=== PATIENT | female | born 1995 | race Two or more races ===

== ENCOUNTER 2025-09-29 10:03 | Emergency (ER) | payer MEDICAID, OTHER ==
[~2025-09-29] VITALS: Ht 180.3 cm; Wt 138.2 kg
--- NOTE | 2025-09-29 10:21 | ED.PDOC ---
GI ASSESSMENT HPI Comments 29 year old female presents to the ED with a chief complaint of abdominal pain onset 1 day. Patient has been experiencing RLQ pain for the past day as well as nausea/vomiting, poor fluid intake due to symptoms. She is currently 9 weeks , . She is also experiencing dysuria with burning sensation. Denies fever, chills, headache, dizziness, hematemesis, hematuria, vaginal discharge. No other symptoms or modifying factors present at this time. Chief Complaint: Nausea/Vomiting Time Seen by MD: 10:15 Reviewed Notes: Medications, Allergies Allergies: Coded Allergies: NO KNOWN ALLERGIES (Unverified , 09/29/25) Information Source: Patient Mode of Arrival: Ambulatory Timing: Days Duration: Since onset Prehospital treatment: None Quality: Sharp Severity: Moderate Recent: None Recent Hx of: Current Pain Location: RLQ Modifying Factors: Nothing Associated sign and symptoms: Nausea, Vomiting, Abdominal Pain Past Medical History PAST MEDICAL HISTORY: Denies Surgical History: Denies all surgeries YARN TESTER History: No Pertinent YARN TESTER History Family History Family History: Reviewed,noncontributory to illness, No family hx of Cancer, No family hx of DM, No family hx of Heart rossy, No family hx of HTN, No family hx ofKidney rossy, No family hx of Liver rossy, No family hx of Lung rossy, No family hx of Stroke Social History Smoker: Non-Smoker Alcohol: Denies ETOH Use Drugs: Denies Drug Use Lives In: Home Constitutional: denies: chills, diaphoresis, fatigue, fever, malaise, sweats, weakness, others EENTM: denies: blurred vision, double vision, ear bleeding, ear discharge, ear drainage, ear pain, ear ringing, eye pain, eye redness, hearing loss, mouth pain, mouth swelling, nasal discharge, nose bleeding, nose congestion, nose pain, photophobia, tearing, throat pain, throat swelling, voice changes, others Respiratory: denies: cough, hemoptysis, orthopnea, SOB at rest, shortness of breath, SOB with excertion, stridor, wheezing, others Cardiovascular: denies: chest pain, dizzy spells, diaphoresis, Dyspnea on exertion, edema, irregular heart beat, left arm pain, lightheadedness, palpitations, PND, syncope, others Gastrointestinal: reports: abdominal pain, nausea, poor fluid intake, vomiting; denies: abdomen distended, blood streaked bowels, constipated, diarrhea, dysphagia, difficulty swallowing, hematemesis, melena, poor appetite, rectal bleeding, rectal pain, others Genitourinary: reports: burning, dysuria, ; denies: abnormal vagina bleeding, dyspareunia, flank pain, frequency, hematuria, incontinence, pain, vagina discharge, urgency, others Neurological: denies: dizziness, fainting, headache, left sided numbness, left sided weakness, numbness, paresthesia, pre-existing deficit, right sided numbness, right sided weakness, seizure, speech problems, tingling, tremors, weakness, others Musculoskeletal: denies: back pain, gout, joint pain, joint swelling, muscle p ain, muscle stiffness, neck pain, others Integumetry: denies: bruises, change in color, change in hair/nails, dryness, laceration, lesions, lumps, rash, wounds, others Allergic/Immunocompromised: denies: Difficulty Healing, Frequent Infections, Hives, Itching, others Hematologic/Lymphatic: denies: anemia, blood clots, easy bleeding, easy bruising, swollen glands, others Endocrine: denies: excessive hunger, excessive sweating, excessive thirst, excessive urination, flushing, intolerance to cold, intolerance to heat, unexplained weight gain, unexplained weight loss, others Psychiatric: denies: anxiety, bipolar disorder, depression, hopeless, panic disorder, schizophrenia, sleepless, suicidal, others All Other Systems: Reviewed and Negative Physical Exam General Appearance: Moderate Distress, Normal HEENT: Normal ENT Inspection, Pharynx Normal, TMs Normal Neck: Full Range of Motion, Non-Tender, Normal, Normal Inspection Respiratory: Chest Non-Tender, Lungs Clear, No Accessory Muscle Use, No Respiratory Distress, Normal Breath Sounds Cardiovascular: No Edema, No JVD, No Murmur, No Gallop, Normal Peripheral Pulses, Regular Rate/Rhythm Breast Exam: Deferred Gastrointestinal: No Organomegaly, Non Tender, No Pulsatile Mass, Normal Bowel Sounds, Soft Genitalia: Deferred Pelvic: Deferred Rectal: Deferred Extremities: No calf tenderness, Normal capillary refill, Normal inspection, Normal range of motion, Non-tender, No pedal edema Musculoskeletal : Apperance: Normal Neurologic: Alert, 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 Was a procedure done?: No GI differential Dx Differential Diagnosis: Constipation, Diverticular disease, Esophagitis, Gastritis/PUD, Gastroenteritis X-Ray, Labs, Meds, VS Vital Signs Date Time Temp Pulse Resp B/P (MAP) Pulse Ox O2 Delivery O2 Flow Rate FiO2 09/29/25 11:18 101 17 98 Room Air 09/29/25 11:18 98.7 101 17 124/89 (101) 98 98.7 09/29/25 10:07 98.3 115 15 127/99 96 98.3 Lab Test 09/29/25 11:11 09/29/25 10:34 Range/Units Urine Color Light-orange Yellow Urine Clarity Turbid H Clear Urine pH 6.0 5.0-9.0 Urine Specific [place] 1.032 1.001-1.035 Urine Protein 1+ H Negative Urine Ketones 1+ H Negative Urine Blood Trace H Negative /uL Urine Nitrite Negative Negative Urine Bilirubin Negative Negative Urine Urobilinogen Normal Negative mg/dL Urine Leukocyte Esterase 3+ Negative /uL Urine RBC 35 0 - 4 /hpf Urine Microscopic WBC 46 H 0-5 /HPF Urine Squamous Epithelial Cells Mod <5 /hpf Urine Bacteria Few H None Seen /hpf Urine Mucus Few None Seen Urine Glucose Normal Normal mg/dL Beta HCG, Quantitative 15463.1 H 1.5-4.2 mIU/mL Current Medications Medications (Trade) Dose Ordered Sig/Timbo Route Start Time Stop Time Status Last Admin Sodium Chloride 1,000 ml @ 1,000 mls/hr Q1H ONCE IV 09/29/25 10:30 09/29/25 11:29 DC 09/29/25 11:17 Patient alert. Came in because of nausea. She is . Vitals stable. Answering all questions. No leg swelling. Respiratory rate within normal limits. Saturation pristine on room air. Explained to the patient. Was told to follow up with her OBGYN. Was told to follow up with her primary care physician. Was told to come back if there is any problem. [address] [address] Ph: [phone] DIAGNOSTIC IMAGING Diagnostic Imaging Report : [id number] Signed PATIENT: CELESTE CANDELARIO ACCT: [id number] UNIT: [id number] : 1995 LOC: ER ROOM / BED: / AGE / SEX: 29 / F ADM STATUS: REG ER SERVICE 1020 ORDERING PHYSICIAN: HAYDEE VELASQUEZ MD PROCEDURE(s): OB4US - OB ULTRASOUND COMP LESS 14WKS REASON: Cramping ORDER NUMBER(s): [id number], ACCESSION NUMBER(s): [id number] OB ULTRASOUND <14 WEEKS: HISTORY: Cramping TECHNIQUE: Multiple real-time grayscale sonographic images of the pelvis with duplex Doppler color flow, spectral and M-mode analysis. TRANSDUCERS: Transabdominal COMPARISON: None FINDINGS: The uterus measures 12.4 x 8.6 x 9.6 cm The cervix is not visualized Right ovary measures 3.2 x 2.3 x 1.2 cm with normal Doppler color flow. Left ovary measures 4.2 x 2.7 x 3.9 cm with normal Doppler color flow. Left ovarian cyst measures 2.4 cm. 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 Yolk sac is not visualized. Amniotic fluid is subjectively within normal limits Olga-gestational space: Small subchorionic hematoma measures 2.6 cm. Incidental note of small volume fluid in the right lower quadrant. IMPRESSION: IUP single live fetus 9 weeks and 5 days AUA corresponding to an NICOLE of 04/29/2026. Small subchorionic hematoma is present measuring 2.6 cm. Close clinical and son ographic follow-up advised. ATED BY: GREGORIO CANDELARIA MD DICTATED DATE/TIME: 09/29/251244 SIGNED BY: GREGORIO CANDELARIA MD SIGNED DATE/TIME: 09/29/251244 CC: Time of 1ST Reevaluation: 10:45 Reevaluation 1ST: Unchanged Patient Education/Counseling: Diagnosis, Treatment, Prognosis Family Education/Counseling: No Family Present SEPSIS Sepsis Screen Date sepsis recognized/suspect: Sep 29, 2025 Time Sepsis recognized/suspect: 1008 Recent Procedure: No On Antibiotic Therapy: No Respiratory Rate >20: No Heart Rate >90: Yes Temp<36 C (96.8 F) or >38.3 C: No SBP <90 or MAP <65 mmHG: No New Acute Mental Status Change: No Is the patient on CPAP, BIPAP,: No Physician Orders Ob Ultrasound Comp Less 14wks (09/29/25 10:20) Vital Signs Date Time Temp Pulse Resp B/P (MAP) Pulse Ox O2 Delivery O2 Flow Rate FiO2 09/29/25 11:18 101 17 98 Room Air 09/29/25 11:18 98.7 101 17 124/89 (101) 98 98.7 09/29/25 10:07 98.3 115 15 127/99 96 98.3 Medications Medications Dose Ordered Sig/Timbo Route Start Time Stop Time Status Last Admin Dose Admin Sodium Chloride 1,000 ml @ 1,000 mls/hr Q1H ONCE IV 09/29/25 10:30 09/29/25 11:29 DC 09/29/25 11:17 Departure 1 Departure Time of Disposition: 10:32 Impression: Primary Impression: Normal Qualified Codes: Z34.90 - Encounter for supervision of normal , unspecified, unspecified trimester Additional Impression: UTI (urinary tract infection) Qualified Codes: N30.00 - Acute cystitis without hematuria Disposition: 01 HOME / SELF CARE / HOMELESS Condition: Good e-Prescriptions Cephalexin Monohydrate (Cephalexin) 500 Mg Cap 1 CAP PO QID for 7 Days, #28 CAP Prov: HADYEE VELASQUEZ MD 09/29/25 Discharged With: Self Critical Care Note Critical Care Time?: No Stability Stability form required: No Heart Score Heart Score: Heart Score Response (Comments) Value History N/A 0 EKG N/A 0 Age N/A 0 Risk Factors N/A 0 Troponin N/A 0 Total 0 I personally scribed for HAYDEE VELASQUEZ MD ([email or web address]) on 09/29/25 at 10:21. Electronically submitted by Lisa Owens ([email or web address]). I personally scribed for HAYDEE VELASQUEZ MD ([email or web address]) on 09/29/25 at 13:25. Electronically submitted by Lisa Owens ([email or web address]). HAYDEE VELASQUEZ MD Sep 29, 2025 10:21
[2025-09-29] MEDS: SODIUM CHLORIDE 0.9% 1,000 ML IV ONE (11:17)
--- NOTE | 2025-09-29 12:47 | DVH ---
OB ULTRASOUND <14 WEEKS: HISTORY: Cramping TECHNIQUE: Multiple real-time grayscale sonographic images of the pelvis with duplex Doppler color flow, spectral and M-mode analysis. TRANSDUCERS: Transabdominal COMPARISON: None FINDINGS: The uterus measures 12.4 x 8.6 x 9.6 cm The cervix is not visualized Right ovary measures 3.2 x 2.3 x 1.2 cm with normal Doppler color flow. Left ovary measures 4.2 x 2.7 x 3.9 cm with normal Doppler color flow. Left ovarian cyst measures 2.4 cm. IUP single fetus at 9 weeks and 5 days average ultrasound age based on mean crown-rump length of 0.9 cm and gestational sac size of 4.3 cm heart rate detected at 173 beats per minute. Yolk sac is not visualized. Amniotic fluid is subjectively within normal limits Olga-gestational space: Small subchorionic hematoma measures 2.6 cm. Incidental note of small volume fluid in the right lower quadrant. IMPRESSION: IUP single live fetus 9 weeks and 5 days AUA corresponding to an NICOLE of 04/29/2026. Small subchorionic hematoma is present measuring 2.6 cm. Close clinical and sonographic follow-up advised.
[2025-09-29 13:08] LABS: Urine Protein, UAD 1+ (Negative)
[2025-09-29] MEDS ORDERED: CEPH500C PO (13:31)
[2025-09-29 14:00] VITALS: BP 110/69; PULSE 80; RESP 18; TEMP 99; O2SAT 98
== END 2025-09-29 14:10 | disposition home or self-care (01) ==
LOC: ER 10:08
DX: Z34.91 Encounter for supervision of normal pregnancy, unspecified, first trimester (principal); N39.0 Urinary tract infection, site not specified; Z3A.09 9 weeks gestation of pregnancy
CPT/HCPCS: 36415; 76801; 81001; 84702; 96360; 96361; 99284; J7030